=== PATIENT | male | born 1960 ===

== ENCOUNTER → 2018-09-27 08:16 | Outpatient (REF) | payer OTHER, SELFPAY ==
[2018-09-27 08:52] LABS: Free T3, Triiodothyronine Free 3.49 pg/mL (2.77-5.27); Free T4, Direct Thyroxine 1.38 ng/dL (0.78-2.19)
[2018-09-27 09:06] LABS: Thyroid Stimulating Hormone 1.25 uIU/mL (0.47-4.68)
[2018-09-28 14:28] LABS: Anti Thyroglobulin Antibody < 1 IU/mL (< 2)
[2018-10-03 11:53] LABS: Specimen 1 4.2 uIU/mL; Specimen 2 18.1 uIU/mL; Specimen 3 16.1 uIU/mL; Specimen 4 3.1 uIU/mL
== END ==
LOC: LAB 08:16
PROVIDERS: Visit Provider Family Medicine
DX: R53.83 Other fatigue (principal)
CPT/HCPCS: 83525; 84439; 84443; 84481; 86800